=== PATIENT | female | born 1990 | race Caucasian/White ===

== ENCOUNTER 2023-04-01 17:54 | Emergency (ER) | payer OTHER ==
[~2023-04-01] VITALS: Ht 167.6 cm; Wt 122.5 kg
[2023-04-01 18:01] VITALS: BP 160/98; PULSE 99; RESP 20; TEMP 98.1; O2SAT 98
[2023-04-01] MEDS ORDERED: ACETAMINOPHEN EXTRA STRENGTH 500 MG TAB PO ONE (18:25)
[2023-04-01] MEDS ORDERED: LORazepam 0.5 MG TAB PO ONE (18:25)
[2023-04-01] MEDS ORDERED: IBUPROFEN 600 MG TAB PO ONE (18:25)
[2023-04-01 20:53] VITALS: BP 142/88; PULSE 82; RESP 20; TEMP 98.1; O2SAT 98
[2023-04-01] MEDS ORDERED: IBUP-2213 PO (21:16)
== END 2023-04-01 20:53 | disposition home or self-care (01) ==
LOC: MED 17:54
DX: R07.89 Other chest pain (principal); Z79.899 Other long term (current) drug therapy; V49.59XA Passenger injured in collision with other motor vehicles in traffic accident, initial encounter; Y93.89 Activity, other specified; Y92.89 Other specified places as the place of occurrence of the external cause; Y99.8 Other external cause status
CPT/HCPCS: 71045; 99284